=== PATIENT | male | born 1950 | race Caucasian/White ===

== ENCOUNTER 2020-03-28 18:45 | Inpatient (IN) | payer MEDICARE, BC ==
[~2020-03-28] VITALS: Ht 182.9 cm; Wt 116.4 kg
[2020-03-28 18:50] VITALS: BP 113/83
[2020-03-28] MEDS ORDERED: ACETAMINOPHEN 650 MG SUPP.RECT. PR PRN (19:45)
[2020-03-28] MEDS ORDERED: ONDANSETRON PF 4 MG/2 ML VIAL. IV PRN (19:45)
[2020-03-28] MEDS ORDERED: guaiFENesin ORAL 200 MG/10 ML LIQUID. PO PRN (19:45)
[2020-03-28] MEDS ORDERED: ALBUTEROL SULFATE 2.5 MG/3 ML NEBU. NEB PRN (19:45)
[2020-03-28] MEDS ORDERED: diphenhydrAMINE 50 MG/ML VIAL IVP PRN (19:45)
[2020-03-28] MEDS ORDERED: ACETAMINOPHEN 325 MG TABLET. PO PRN (19:45)
[2020-03-28] MEDS ORDERED: ZOLPIDEM 5 MG TABLET. PO PRN (19:45)
[2020-03-28 20:10] LABS: BASO # 0.1 x10^3/uL (0.0-0.2); BASO % 1 % (0-3); EOS # 0.1 x10^3/uL (0.0-0.7); EOS % 1 % (0-3); HEMATOCRIT 43.1 % (39.0-53.0); HEMOGLOBIN 14.4 g/dL (13.0-17.5); LYMPH # 1.7 x10^3/uL (1.0-4.8); LYMPH % 16 % (24-48); MEAN CORPUSCULAR HEMOGLOBIN 30 pg (25-35); MEAN CORPUSCULAR HGB CONC 33 g/dL (31-37); MEAN CORPUSCULAR VOLUME 90 fL (79-100); MONO # 0.7 x10^3/uL (0.0-1.1); MONO % 6 % (0-9); NEUT % 75 % (31-73); PLATELET COUNT 274 x10^3/uL (140-400); RED BLOOD COUNT 4.78 x10^6/uL (4.30-5.70); RED CELL DISTRIBUTION WIDTH 15.6 % (11.5-14.5); WHITE BLOOD COUNT 10.6 x10^3/uL (4.0-11.0)
[2020-03-28 20:22] LABS: CALCIUM 9.5 mg/dL (8.5-10.1); GFR 73.5
--- NOTE | 2020-03-28 20:39 | PDOC1 ---
History and Physical Date of Admission Date of Admission 03/28/2020 Identification/Chief Complaint Chief Complaint Food gets stuck Source Source: Chart review, Patient History of Present Illness History of Present Illness Patient is a 70-year-old gentleman with past medical history of diabetes dysphagia atrial fibrillation who was in his usual state of health until ye evening when apparently he came back from driving from [place] and as he was having dinner patient felt like food got stuck in his throat. The patient relates that he never drinks soda and that particular evening since he was tired and did not want to look for something else to drink he proceeded to drink a soda that he found in his fridge. Patient and denies weight loss he had a longstanding history of smoking bypass over 10 years quitting. The patient denies any recent weight loss no hematemesis no black tarry stools no pain. Patient takes metformin and Trulicity for his diabetes but does not remember his hemoglobin A1c. Patient was assessed in the emergency department at the [facility] in [place] due to the significant symptoms he was having with difficulty swallowing. He does not have airway compromise he does not have stridor denies any headache palpitations no shortness of breath no chest pain no nausea vomiting or diarrhea has been reported, we were called from [facility] for transfer for a GI evaluation and possible EGD in the a.m. I have discussed CODE STATUS with the patient and the present time he continues to be a full code, all of his concerns were addressed to the best of my abilities, plan of care explained in detail Past Medical History Cardiovascular: AFIB, CAD, CHF, HTN Pulmonary: Asthma CENTRAL NERVOUS SYSTEM: Other (Brain bleed) Heme/Onc: Cancer (Prostate cancer) Past Surgical History Past Surgical History: No pertinent history Family History Family History: Other (Esophageal cancer) Social History Smoke: No ALCOHOL: none Drugs: None Current Medications Current Medications Current Medications Medications (Trade) Dose Ordered Sig/Sariah Start Time Stop Time Status Last Admin Dose Admin Acetaminophen (Tylenol Supp) 650 mg PRN Q4HRS PRN 03/28/20 19:45 UNV Acetaminophen (Tylenol) 650 mg PRN Q4HRS PRN 03/28/20 19:45 UNV Albuterol Sulfate (Ventolin Neb Soln) 2.5 mg PRN Q4HRS PRN 9/8/20 19:45 UNV Diphenhydramine HCl (Benadryl) 25 mg PRN Q4HRS PRN 03/28/20 19:45 UNV Enoxaparin Sodium (Lovenox 40mg Syringe) 40 mg Q24H 03/28/20 19:45 UNV Guaifenesin (Robitussin) 200 mg PRN Q4HRS PRN 03/28/20 19:45 UNV Lorazepam (Ativan Inj) 1 mg PRN Q4HRS PRN 03/28/20 19:45 UNV Ondansetron HCl (Zofran) 4 mg PRN Q4HRS PRN 03/28/20 19:45 UNV Sodium Chloride 1,000 ml @ 100 mls/hr Q10H 03/28/20 19:41 UNV Zolpidem Tartrate (Ambien) 5 mg PRN QHS PRN 03/28/20 19:45 UNV ROS Review of System CONSTITUTIONAL: No fever or chills EYES: No recent changes SKIN: No rash or itching CARDIOVASCULAR: No chest pain, syncope, palpitations, or edema RESPIRATORY: No SOB or cough GASTROINTESTINAL: No nausea, vomiting or abdominal pain NEUROLOGICAL: No headaches or weakness ENDOCRINE: No cold or heat intolerance GENITOURINARY: No urgency or frequency of urination MUSCULOSKELETAL: No back pain or joint pain LYMPHATICS: No enlarged lymph nodes PSYCHIATRIC: No anxiety or depression Physical Exam Physical Exam GEN.: No apparent distress. Alert and oriented. HEENT: Head is normocephalic, atraumatic NECK: Supple. LUNGS: Clear to auscultation. HEART: RRR, S1, S2 present. Peripheral pulses intact ABDOMEN: Soft, nontender. Positive bowel sounds. EXTREMITIES: Without any cyanosis. NEUROLOGIC: Normal speech, normal tone PSYCHIATRIC: Normal affect, normal mood. SKIN: No ulcerations Vitals Vitals Vital Signs Date Time Temp Pulse Resp B/P (MAP) Pulse Ox O2 Delivery O2 Flow Rate FiO2 03/28/20 18:50 97.4 87 18 113/83 (93) 96 Room Air 97.4 Labs Labs Laboratory Tests Test 03/28/20 20:00 Sodium Level 142 mmol/L (136-145) Potassium Level 4.0 mmol/L (3.5-5.1) Chloride Level 103 mmol/L (98-107) Carbon Dioxide Level 25 mmol/L (21-32) Anion Gap 14 (6-14) Blood Urea Nitrogen 22 mg/dL (8-26) Creatinine 1.0 mg/dL (0.7-1.3) Estimated GFR (Cockcroft-Gault) 73.5 Glucose Level 117 mg/dL (70-99) Calcium Level 9.5 mg/dL (8.5-10.1) Laboratory Tests Test 03/28/20 20:00 Sodium Level 142 mmol/L (136-145) Potassium Level 4.0 mmol/L (3.5-5.1) Chloride Level 103 mmol/L (98-107) Carbon Dioxide Level 25 mmol/L (21-32) Anion Gap 14 (6-14) Blood Urea Nitrogen 22 mg/dL (8-26) Creatinine 1.0 mg/dL (0.7-1.3) Estimated GFR (Cockcroft-Gault) 73.5 Glucose Level 117 mg/dL (70-99) Calcium Level 9.5 mg/dL (8.5-10.1) VTE Prophylaxis Ordered VTE Prophylaxis Devices: No VTE Pharmacological Prophylaxi: Yes Assessment/Plan Assessment/Plan Food impaction in the esophagus History of atrial fibrillation History of diabetes mellitus type 2 Essential hypertension History of prostate cancer History of intracranial hemorrhage Plan Consult GI Keep n.p.o. Fluid for maintenance with normal saline Metoprolol as needed DVT prophylaxis with SCDs due to his history of brain bleed Further recommendations based on the clinical course Justifications for Admission Other Justification CHAYO MIGUEL MD Mar 28, 2020 20:39
[2020-03-28] MEDS ORDERED: METOPROLOL TARTRATE 5 MG/5 ML VIAL. IVP PRN (20:45)
[2020-03-28] MEDS ORDERED: PANTOPRAZOLE IV PUSH 40 MG VIAL. IVP ONE (21:30)
[2020-03-28] MEDS: IV NORMAL SALINE 1000ML BAG 1,000 ML IV SCH (21:37)
[2020-03-28 22:50] VITALS: BP 137/61
[2020-03-28] MEDS ORDERED: LISI-338 PO (23:25)
[2020-03-28] MEDS ORDERED: MONT10TA49 PO (23:25)
[2020-03-28] MEDS ORDERED: DICL100G54 TP (23:25)
[2020-03-28] MEDS ORDERED: CARV6.2511 PO (23:25)
[2020-03-28] MEDS ORDERED: DULA0.75 SQ (23:25)
[2020-03-28] MEDS ORDERED: SPIR25TA5 PO (23:25)
[2020-03-28] MEDS ORDERED: ESCITALOPRAM OX10 MG PO (23:25)
[2020-03-28] MEDS ORDERED: METF-658 PO (23:25)
[2020-03-28] MEDS ORDERED: FURO20TA3 PO (23:25)
--- NOTE | 2020-03-29 00:33 | NUR ---
Patient arrived from [place] at 1840. Patient is alert and orientated x4. Patient is able to make needs known. Patient belongings verified. Dr. Bernard here and new orders received.
[2020-03-29 02:30] VITALS: BP 136/64
[2020-03-29] MEDS: IV NORMAL SALINE 1000ML BAG 1,000 ML IV SCH (06:26)
[2020-03-29] MEDS ORDERED: IV RINGERS,LACTATED 1000ML 1,000 ML IV ONE (07:15)
[2020-03-29] MEDS ORDERED: LIDOCAINE 2% PF 5 ML VIAL. ONE (07:25)
[2020-03-29] MEDS ORDERED: PROPOFOL 10 MG/ML (20ML) VIAL. IV ONE (07:25)
--- NOTE | 2020-03-29 08:10 | PDOC2 ---
CONSULT Date of Consult Date of Consult DATE: 03/29/20 TIME: 08:08 Reason for Consult Reason for Consult: Dysphagia/meat impaction Past Medical History Cardiovascular: AFIB, CAD, CHF, HTN Pulmonary: Asthma CENTRAL NERVOUS SYSTEM: Other (Brain bleed) Heme/Onc: Cancer (Prostate cancer) Past Surgical History Past Surgical History: No pertinent history Family History Family History: Other (Esophageal cancer) Social History No ALCOHOL: none Drugs: None Current Medications Current Medications Current Medications Sodium Chloride 1,000 ml @ 100 mls/hr Q10H IV Last administered on 03/29/20at 06:26; Start 03/28/20 at 19:41 Ondansetron HCl (Zofran) 4 mg PRN Q4HRS PRN IV NAUSEA/VOMITING; Start 03/28/20 at 19:45 Zolpidem Tartrate (Ambien) 5 mg PRN QHS PRN PO INSOMNIA; Start 03/28/20 at 19:45 Acetaminophen (Tylenol) 650 mg PRN Q4HRS PRN PO TEMP OVER 100.4F OR MILD PAIN; Start 03/28/20 at 19:45 Acetaminophen (Tylenol Supp) 650 mg PRN Q4HRS PRN MD TEMP OVER 100.4F OR MILD PAIN; Start 03/28/20 at 19:45 Diphenhydramine HCl (Benadryl) 25 mg PRN Q4HRS PRN IVP ITCHING; Start 03/28/20 at 19:45 Albuterol Sulfate (Ventolin Neb Soln) 2.5 mg PRN Q4HRS PRN NEB SHORTNESS OF BREATH; Start 03/28/20 at 19:45 Guaifenesin (Robitussin) 200 mg PRN Q4HRS PRN PO COUGH; Start 03/28/20 at 19:45 Lorazepam (Ativan Inj) 1 mg PRN Q4HRS PRN IV ANXIETY / AGITATION; Start 03/28/20 at 19:45 Enoxaparin Sodium (Lovenox 40mg Syringe) 40 mg Q24H SQ ; Start 03/29/20 at 09:00 Pantoprazole Sodium (PROTONIX VIAL for IV PUSH) 40 mg 1X ONCE IVP Last administered on 03/28/20at 21:37; Start 03/28/20 at 21:30; Stop 03/28/20 at 21:31; Status DC Metoprolol Tartrate (Lopressor Vial) 5 mg PRN Q6HRS PRN IVP HYPERTENSION; Start 03/28/20 at 20:45 Ringer's Solution 1,000 ml @ 75 mls/hr 1X ONCE IV Last administered on 03/29/20at 07:16; Start 03/29/20 at 07:15; Stop 03/29/20 at 20:34 Propofol (Diprivan) 200 mg STK-MED ONCE IV ; Start 03/29/20 at 07:25; Stop 03/29/20 at 07:25; Status DC Lidocaine HCl (Lidocaine Pf 2% Vial) 5 ml STK-MED ONCE .ROUTE ; Start 03/29/20 at 07:25; Stop 03/29/20 at 07:25; Status DC Active Scripts Active Reported Trulicity (Dulaglutide) 0.75 Mg/0.5 Ml Pen.injctr 0.75 Mg SQ WEEKLY Metformin Hcl Er (Metformin Hcl) 500 Mg Tab.er.24h 500 Mg PO BIDWMEALS Furosemide 20 Mg Tablet 20 Mg PO DAILY Escitalopram Oxalate 10 Mg Tablet 1 Tab PO HS Carvedilol (Carvedilol) 6.25 Mg Tablet 6.25 Mg PO BIDWMEALS Lisinopril 5 Mg Tablet 1 Tab PO DAILY Spironolactone 25 Mg Tablet 12.5 Mg PO DAILY Montelukast Sodium Tablet (Montelukast Sodium) 10 Mg Tablet 10 Mg PO HS Voltaren (Diclofenac Sodium) 100 Gm Gel..gram. 1 Gm TP QID 30 Days apply to affected area(s) Allergies Allergies: Coded Allergies: bee venom protein (honey bee) (Verified Allergy, Severe, 03/29/20) cephalexin (Verified Allergy, Intermediate, 03/29/20) Vitals VITALS Vital Signs Date Time Temp Pulse Resp B/P (MAP) Pulse Ox O2 Delivery O2 Flow Rate FiO2 03/29/20 07:10 97.9 91 20 95 97.9 03/29/20 07:08 Room Air 03/29/20 02:30 136/64 (88) Labs Labs Laboratory Tests Test 03/28/20 20:00 03/28/20 20:56 03/28/20 23:00 White Blood Count 10.6 x10^3/uL (4.0-11.0) Red Blood Count 4.78 x10^6/uL (4.30-5.70) Hemoglobin 14.4 g/dL (13.0-17.5) Hematocrit 43.1 % (39.0-53.0) Mean Corpuscular Volume 90 fL (79-100) Mean Corpuscular Hemoglobin 30 pg (25-35) Mean Corpuscular Hemoglobin Concent 33 g/dL (31-37) Red Cell Distribution Width 15.6 % (11.5-14.5) Platelet Count 274 x10^3/uL (140-400) Neutrophils (%) (Auto) 75 % (31-73) Lymphocytes (%) (Auto) 16 % (24-48) Monocytes (%) (Auto) 6 % (0-9) Eosinophils (%) (Auto) 1 % (0-3) Basophils (%) (Auto) 1 % (0-3) Neutrophils # (Auto) 8.0 x10^3/uL (1.8-7.7) Lymphocytes # (Auto) 1.7 x10^3/uL (1.0-4.8) Monocytes # (Auto) 0.7 x10^3/uL (0.0-1.1) Eosinophils # (Auto) 0.1 x10^3/uL (0.0-0.7) Basophils # (Auto) 0.1 x10^3/uL (0.0-0.2) Sodium Level 142 mmol/L (136-145) Potassium Level 4.0 mmol/L (3.5-5.1) Chloride Level 103 mmol/L (98-107) Carbon Dioxide Level 25 mmol/L (21-32) Anion Gap 14 (6-14) Blood Urea Nitrogen 22 mg/dL (8-26) Creatinine 1.0 mg/dL (0.7-1.3) Estimated GFR (Cockcroft-Gault) 73.5 Glucose Level 117 mg/dL (70-99) Calcium Level 9.5 mg/dL (8.5-10.1) Glucose (Fingerstick) 122 mg/dL (70-99) SARS-CoV-2 Antigen (Rapid) Negative (NEGATIVE) Laboratory Tests Test 03/28/20 20:00 03/28/20 20:56 03/28/20 23:00 White Blood Count 10.6 x10^3/uL (4.0-11.0) Red Blood Count 4.78 x10^6/uL (4.30-5.70) Hemoglobin 14.4 g/dL (13.0-17.5) Hematocrit 43.1 % (39.0-53.0) Mean Corpuscular Volume 90 fL (79-100) Mean Corpuscular Hemoglobin 30 pg (25-35) Mean Corpuscular Hemoglobin Concent 33 g/dL (31-37) Red Cell Distribution Width 15.6 % (11.5-14.5) Platelet Count 274 x10^3/uL (140-400) Neutrophils (%) (Auto) 75 % (31-73) Lymphocytes (%) (Auto) 16 % (24-48) Monocytes (%) (Auto) 6 % (0-9) Eosinophils (%) (Auto) 1 % (0-3) Basophils (%) (Auto) 1 % (0-3) Neutrophils # (Auto) 8.0 x10^3/uL (1.8-7.7) Lymphocytes # (Auto) 1.7 x10^3/uL (1.0-4.8) Monocytes # (Auto) 0.7 x10^3/uL (0.0-1.1) Eosinophils # (Auto) 0.1 x10^3/uL (0.0-0.7) Basophils # (Auto) 0.1 x10^3/uL (0.0-0.2) Sodium Level 142 mmol/L (136-145) Potassium Level 4.0 mmol/L (3.5-5.1) Chloride Level 103 mmol/L (98-107) Carbon Dioxide Level 25 mmol/L (21-32) Anion Gap 14 (6-14) Blood Urea Nitrogen 22 mg/dL (8-26) Creatinine 1.0 mg/dL (0.7-1.3) Estimated GFR (Cockcroft-Gault) 73.5 Glucose Level 117 mg/dL (70-99) Calcium Level 9.5 mg/dL (8.5-10.1) Glucose (Fingerstick) 122 mg/dL (70-99) SARS-CoV-2 Antigen (Rapid) Negative (NEGATIVE) Assessment/Plan Assessment/Plan Dysphagia- with meat impactoin. Etiology to be determined. Differential includes: Schatzki ring, mallignancy, achalasia, eosinophilic esophagitis, and/or Krishnan's. Plan egd with foreign body removal and possible dilation Full note dictated SANTI FERNANDO MD Mar 29, 2020 08:10
--- NOTE | 2020-03-29 08:11 | PDOC4 ---
Operative Note Operative Note EGD with foreign body removal Meds Propofol per anesthesia Pre-op dx Dysphagia/meat impaction Post-op dx esophagitis with stricture s/p bolus removal Plan O/P Protonix 40 mg daily for 2 months EGD with dilation in 2-3 weeks after medical therapy above. SANTI FERNANDO MD Mar 29, 2020 08:11
[2020-03-29] MEDS ORDERED: ENOXAPARIN 40 MG/0.4 ML SYRINGE. SQ SCH (09:00)
--- NOTE | 2020-03-29 09:10 | CONS ---
DATE OF CONSULTATION: 03/29/2020 GASTROENTEROLOGY CONSULTATION REASON FOR CONSULTATION: Food impaction. HISTORY OF PRESENT ILLNESS: A 70-year-old male with past medical history significant for AFib, coronary artery disease with history of stents, CHF, hypertension, brain bleed, prostate cancer as well as heart stents and is admitted to [facility] via [facility] with a sensation of food bolus being stuck an hour after he began to feel sensation to drink liquids. This was unable to pass. Subsequently, he has come to the Emergency Room late yesterday, being transferred here for further evaluation and care. States he has had heartburn in the past. He is a former smoker and drinker, but has been abstinent for over 8 years of each. His weight have been stable. With the continued issues, requests additional evaluation. PAST MEDICAL HISTORY: AFib, coronary artery disease, congestive heart failure, hypertension, asthma, prostate cancer, history of heart stents. There is a family history of esophageal cancer. MEDICATIONS: At the present time include Trulicity, metformin, anticoagulation with Plavix. SOCIAL HISTORY: Nondrinker, nonsmoker. He is retired. FAMILY HISTORY: Significant for esophageal cancer. REVIEW OF SYSTEMS: Per records. PHYSICAL EXAMINATION: GENERAL: Reveals well-nourished, well-developed male who is alert, cooperative, in mild distress. VITAL SIGNS: Temperature 97.9, pulse 91, respirations 20, sat on room air is 95%. LUNGS: Clear. CARDIOVASCULAR: Reveals an S1, S2 without S3, S4 or appreciable murmur. ABDOMEN: With a soft abdomen. Normal bowel sounds, without appreciable hepatosplenomegaly without apparent crepitus. EXTREMITIES: No cyanosis, clubbing or edema. There are multiple ecchymoses all over the skin. LABORATORY STUDIES: Sodium 142, potassium 4.0, chloride 103, BUN 22, creatinine 1.0, glucose is 117, calcium is 9.5. Hemoglobin 14.4, hematocrit 42.1, white count 10.6, and platelet counts 274,000. IMPRESSION: Dysphagia with history of reflux. Differential includes achalasia, malignancy, Krishnan's with stricture, eosinophilic esophagitis, Schatzki's ring among others. We therefore recommend upper endoscopy with possible biopsy and foreign body removal. Risks and benefits of procedure including risk of hemorrhage and perforation with anticoagulation as well as food bolus has been present for a length of time and increased risk of perforation have been discussed. Attempts will be made to dislodge the food bolus today with potential dilatation, second procedure may be needed down the road. SANTI FERNANDO MD DR: MARVA/melania JOB#: [id number] / [id number]
[2020-03-29] MEDS ORDERED: PANT40TA77 PO (09:20)
[2020-03-29] MEDS ORDERED: CARVEDILOL 6.25 MG TABLET. PO SCH (09:30)
[2020-03-29] MEDS ORDERED: metFORMIN XR 500 MG TAB.ER.24H PO SCH (09:30)
--- NOTE | 2020-03-29 09:36 | PDOC3 ---
Discharge Summary Visit Information Date of Admission: Mar 28, 2020 Date of Discharge: Mar 29, 2020 Admitting Diagnosis Comment: Food impaction in the esophagus History of atrial fibrillation History of diabetes mellitus type 2 Essential hypertension History of prostate cancer History of intracranial hemorrhage Final Diagnosis Food impaction in the esophagus History of atrial fibrillation History of diabetes mellitus type 2 Essential hypertension History of prostate cancer History of intracranial hemorrhage Brief Hospital Course Allergies Allergies Coded Allergies Type Severity Reaction Last Updated Verified bee venom protein (honey bee) Allergy Severe 03/29/20 Yes cephalexin Allergy Intermediate 03/29/20 Yes Vital Signs Vital Signs Date Time Temp Pulse Resp B/P (MAP) Pulse Ox O2 Delivery O2 Flow Rate FiO2 03/29/20 08:39 81 18 141/71 95 Room Air 03/29/20 08:04 97.1 2 97.1 Lab Results Laboratory Tests Test 03/28/20 20:00 03/28/20 20:56 03/28/20 23:00 03/29/20 09:26 White Blood Count 10.6 x10^3/uL (4.0-11.0) Red Blood Count 4.78 x10^6/uL (4.30-5.70) Hemoglobin 14.4 g/dL (13.0-17.5) Hematocrit 43.1 % (39.0-53.0) Mean Corpuscular Volume 90 fL (79-100) Mean Corpuscular Hemoglobin 30 pg (25-35) Mean Corpuscular Hemoglobin Concent 33 g/dL (31-37) Red Cell Distribution Width 15.6 % (11.5-14.5) Platelet Count 274 x10^3/uL (140-400) Neutrophils (%) (Auto) 75 % (31-73) Lymphocytes (%) (Auto) 16 % (24-48) Monocytes (%) (Auto) 6 % (0-9) Eosinophils (%) (Auto) 1 % (0-3) Basophils (%) (Auto) 1 % (0-3) Neutrophils # (Auto) 8.0 x10^3/uL (1.8-7.7) Lymphocytes # (Auto) 1.7 x10^3/uL (1.0-4.8) Monocytes # (Auto) 0.7 x10^3/uL (0.0-1.1) Eosinophils # (Auto) 0.1 x10^3/uL (0.0-0.7) Basophils # (Auto) 0.1 x10^3/uL (0.0-0.2) Sodium Level 142 mmol/L (136-145) Potassium Level 4.0 mmol/L (3.5-5.1) Chloride Level 103 mmol/L (98-107) Carbon Dioxide Level 25 mmol/L (21-32) Anion Gap 14 (6-14) Blood Urea Nitrogen 22 mg/dL (8-26) Creatinine 1.0 mg/dL (0.7-1.3) Estimated GFR (Cockcroft-Gault) 73.5 Glucose Level 117 mg/dL (70-99) Calcium Level 9.5 mg/dL (8.5-10.1) Glucose (Fingerstick) 122 mg/dL (70-99) 158 mg/dL (70-99) SARS-CoV-2 Antigen (Rapid) Negative (NEGATIVE) Laboratory Tests Test 03/28/20 20:00 03/28/20 20:56 03/28/20 23:00 03/29/20 09:26 White Blood Count 10.6 x10^3/uL (4.0-11.0) Red Blood Count 4.78 x10^6/uL (4.30-5.70) Hemoglobin 14.4 g/dL (13.0-17.5) Hematocrit 43.1 % (39.0-53.0) Mean Corpuscular Volume 90 fL (79-100) Mean Corpuscular Hemoglobin 30 pg (25-35) Mean Corpuscular Hemoglobin Concent 33 g/dL (31-37) Red Cell Distribution Width 15.6 % (11.5-14.5) Platelet Count 274 x10^3/uL (140-400) Neutrophils (%) (Auto) 75 % (31-73) Lymphocytes (%) (Auto) 16 % (24-48) Monocytes (%) (Auto) 6 % (0-9) Eosinophils (%) (Auto) 1 % (0-3) Basophils (%) (Auto) 1 % (0-3) Neutrophils # (Auto) 8.0 x10^3/uL (1.8-7.7) Lymphocytes # (Auto) 1.7 x10^3/uL (1.0-4.8) Monocytes # (Auto) 0.7 x10^3/uL (0.0-1.1) Eosinophils # (Auto) 0.1 x10^3/uL (0.0-0.7) Basophils # (Auto) 0.1 x10^3/uL (0.0-0.2) Sodium Level 142 mmol/L (136-145) Potassium Level 4.0 mmol/L (3.5-5.1) Chloride Level 103 mmol/L (98-107) Carbon Dioxide Level 25 mmol/L (21-32) Anion Gap 14 (6-14) Blood Urea Nitrogen 22 mg/dL (8-26) Creatinine 1.0 mg/dL (0.7-1.3) Estimated GFR (Cockcroft-Gault) 73.5 Glucose Level 117 mg/dL (70-99) Calcium Level 9.5 mg/dL (8.5-10.1) Glucose (Fingerstick) 122 mg/dL (70-99) 158 mg/dL (70-99) SARS-CoV-2 Antigen (Rapid) Negative (NEGATIVE) Brief Hospital Course Mr. Julian is a 70 old male who presented with the above-mentioned food impaction of the esophagus. Patient was seen in consultation by GI and took him to the endoscopy suite for an EGD. Results are as follows Operative Note EGD with foreign body removal Meds Propofol per anesthesia Pre-op dx Dysphagia/meat impaction Post-op dx esophagitis with stricture s/p bolus removal Plan O/P Protonix 40 mg daily for 2 months EGD with dilation in 2-3 weeks after medical therapy above. SANTI FERNANDO MD Mar 29, 2020 08:11 He was deemed appropriate for discharge once he has had lunch. All of his concerns were addressed to the best of my abilities he will be following up with Dr. Egan in 2 to 3 weeks Physical exam Lungs clear to auscultation bilaterally with good inspiratory effort Cardiovascular S1-S2 regular rhythm no murmurs gallops or rubs Discharge Information Condition at Discharge: Improved Follow Up: Weeks Disposition/Orders: D/C to Home Scheduled Carvedilol (Carvedilol ) 6.25 Mg Tablet, 6.25 MG PO BIDWMEALS for CARDIAC, (Reported) Entered as Reported by: JONATHAN CARRANZA on 03/28/20 [id number] Last Taken: Unknown Dose on 03/25/20 Last Action: Continued on 03/29/20921 by CHAYO MIGUEL MD Diclofenac Sodium (Voltaren) 100 Gm Gel..gram., 1 GM TP QID for pain for 30 Days, #1 Ref 0 (Reported) apply to affected area(s) Entered as Reported by: JONATHAN CARRANZA on 03/28/202324 Last Taken: Unknown Dose on Unknown Date & Time Last Action: Continued on 03/29/20921 by CHAYO MIGUEL MD Dulaglutide (Trulicity) 0.75 Mg/0.5 Ml Pen.injctr, 0.75 MG SQ WEEKLY for Diabetes, (Reported) Entered as Reported by: JONATHAN CARRANZA on 03/28/202324 Last Taken: Unknown Dose on 03/23/20 Last Action: Converted on 03/29/20921 by CHAYO MIGUEL MD Escitalopram Oxalate (Escitalopram Oxalate) 10 Mg Tablet, 1 TAB PO HS for depression, #30 Ref 3 (Reported) Entered as Reported by: JONATHAN CARRANZA on 03/28/202324 Last Taken: Unknown Dose on 03/25/20 Last Action: Converted on 03/29/20921 by CHAYO MIGUEL MD Furosemide (Furosemide) 20 Mg Tablet, 20 MG PO DAILY for CHF, (Reported) Entered as Reported by: JONATHAN CARRANZA on 03/28/202324 Last Taken: UNKNOWN on Unknown Date & Time Last Action: Continued on 03/29/20921 by CHAYO MIGUEL MD Lisinopril (Lisinopril) 5 Mg Tablet, 1 TAB PO DAILY for HTN, #30 Ref 5 (Reported) Entered as Reported by: JONATHAN CARRANZA on 03/28/202324 Last Taken: Unknown Dose on 03/25/20 Last Action: Continued on 03/29/20921 by CHAYO MIGUEL MD Metformin Hcl (Metformin Hcl Er) 500 Mg Tab.er.24h, 500 MG PO BIDWMEALS for Diabetes, (Reported) Entered as Reported by: JONATHAN CARRANZA on 03/28/202324 Last Taken: UNKNOWN on Unknown Date & Time Last Action: Continued on 03/29/20921 by CHAYO MIGUEL MD Montelukast Sodium (Montelukast Sodium Tablet ) 10 Mg Tablet, 10 MG PO HS for FOR ASTHMA, Ref 0 (Reported) Entered as Reported by: JONATHAN CARRANZA on 03/28/202324 Last Taken: Unknown Dose on 03/25/20 Last Action: Continued on 03/29/20921 by CHAYO MIGUEL MD Pantoprazole Sodium (Protonix ) 40 Mg Tablet.dr, 40 MG PO DAILYAC for GERD for 30 Days, #30 Prescribed by: CHAYO MIGUEL MD on 03/29/20919 Last Action: Continued on 03/29/20921 by CHAYO MIGUEL MD Spironolactone (Spironolactone) 25 Mg Tablet, 12.5 MG PO DAILY for HTN, (Reported) Entered as Reported by: JONATHAN CARRANZA on 03/28/202324 Last Taken: Unknown Dose on 03/25/20 Last Action: Continued on 03/29/20921 by CHAYO MIGUEL MD Justicifation of Admission Dx: Justifications for Admission: Justification of Admission Dx: Yes Comments: Esophageal foreign body CHAYO MIGUEL MD Mar 29, 2020 09:35
[2020-03-29] MEDS ORDERED: LISINOPRIL 5 MG TABLET. PO SCH (10:00)
[2020-03-29] MEDS ORDERED: CITALOPRAM 20 MG TABLET. PO SCH (10:00)
[2020-03-29] MEDS ORDERED: FUROSEMIDE 20 MG TABLET PO SCH (10:00)
[2020-03-29] MEDS ORDERED: SPIRONOLACTONE 25 MG TABLET PO SCH (10:00)
--- NOTE | 2020-03-29 10:40 | NUR ---
SS following for discharge planning. SS reviewed pt chart and discussed with pt RN. Pt is from home with spouse and is currently on room air. Pt had EGD today. Possible discharge to home today with self care. SS will continue to follow for discharge planning.
[2020-03-29] MEDS: DICLOFENAC SODIUM 1% TOPICAL GEL 100GM TUBE. TP SCH ×2 (10:47→13:00)
[2020-03-29 11:12] VITALS: BP 139/59
[2020-03-29] MEDS ORDERED: PANTOPRAZOLE 40 MG TABLET.DR. PO SCH (11:30)
--- NOTE | 2020-03-29 14:30 | NUR ---
Discharge instructions given to patient. Pt informed that Dr. Almanzar's office will be contacting him for a follow up appointment in 2-3 weeks. Education given over esophageus stricture and protonix. Patient verbalizes understanding.
--- NOTE | 2020-03-29 15:45 | EKG ---
[facility] [address] [place] [address] Test Date: 2020-03-29 Test Time: 13:31:42 Pat Name: KASI LITTLE Department: Room: 205 1 Gender: M [employer] Section: [place] : 1950 Requested By: CHAYO MIGUEL Order Number: [id number] Reading MD: Measurements Intervals [place] Rate: 93 P: ME: QRS: 5 QRSD: 114 T: 205 QT: 384 QTc: 480 Interpretive Statements IRREGULAR RHYTHM, NO P-WAVE FOUND T ABNORMALITY IN LATERAL LEADS INFEROLATERAL LEADS PROLONGED QT ABNORMAL ECG RI6.02 No previous ECG available for comparison
[2020-03-29] MEDS ORDERED: MONTELUKAST SODIUM 10 MG TABLET. PO SCH (21:00)
[2020-04-08] MEDS ORDERED: NON FORMULARY ITEM (Dulaglutide (Trulicity) 0.75 MG) SQ SCH (09:00)
== END 2020-03-29 15:00 | disposition home or self-care (01) | DRG 395 ==
LOC: 2 NORTH 18:45
PROVIDERS: ADMIT Internal Medicine; ATTEND Internal Medicine
PROC: 0DC58ZZ Extirpation of Matter from Esophagus, Via Natural or Artificial Opening Endoscopic (ICD-10-PCS; principal; 2020-03-29 07:30)
DX: T18.128A Food in esophagus causing other injury, initial encounter (principal); E11.9 Type 2 diabetes mellitus without complications; K22.2 Esophageal obstruction; K21.0 Gastro-esophageal reflux disease with esophagitis; I11.0 Hypertensive heart disease with heart failure; I25.10 Atherosclerotic heart disease of native coronary artery without angina pectoris; I48.91 Unspecified atrial fibrillation; I50.9 Heart failure, unspecified; J45.909 Unspecified asthma, uncomplicated; Z80.0 Family history of malignant neoplasm of digestive organs; Z20.828 Contact with and (suspected) exposure to other viral communicable diseases; Z85.46 Personal history of malignant neoplasm of prostate; Z86.73 Personal history of transient ischemic attack (TIA), and cerebral infarction without residual deficits; Z87.891 Personal history of nicotine dependence; Z95.5 Presence of coronary angioplasty implant and graft; Z79.899 Other long term (current) drug therapy; X58.XXXA Exposure to other specified factors, initial encounter; Y93.89 Activity, other specified; Y92.89 Other specified places as the place of occurrence of the external cause; Y99.8 Other external cause status; Z88.8 Allergy status to other drugs, medicaments and biological substances; Z91.030 Bee allergy status
CPT/HCPCS: 36415; 43247; 80048; 82962; 85025; 87426; 93005; 94760; C9113; J2704; J7030; J7120; G0378; U0003-CS

== ENCOUNTER → 2020-04-17 | Outpatient (CLI) | payer MEDICARE, BC ==
[2020-03-29 11:12] VITALS: BP 139/59
[~2020-04-17] MED LIST: CARV6.2511 PO; DICL100G54 TP; DULA0.75 SQ; ESCITALOPRAM OX10 MG PO; FURO20TA3 PO; LISI-338 PO; METF-658 PO; MONT10TA49 PO; PANT40TA77 PO; SPIR25TA5 PO
== END | disposition home or self-care (01) ==
LOC: LAB 07:19
PROVIDERS: ATTEND Internal Medicine Gastroenterology
DX: Z01.812 Encounter for preprocedural laboratory examination (principal); Z20.828 Contact with and (suspected) exposure to other viral communicable diseases; R13.10 Dysphagia, unspecified
CPT/HCPCS: U0003-CS

== ENCOUNTER → 2020-04-19 | Day surgery (SDC) | payer MEDICARE, BC ==
[~2020-04-19] MED LIST changes: +IV RINGERS,LACTATED 1000ML 1,000 ML IV SCH; +PROPOFOL 10 MG/ML (20ML) VIAL. IV ONE
[2020-04-19 09:57] VITALS: BP 129/58
== END | disposition home or self-care (01) ==
LOC: ENDOS 07:44
PROVIDERS: ATTEND Internal Medicine Gastroenterology
DX: R13.10 Dysphagia, unspecified (principal); K22.2 Esophageal obstruction; I11.0 Hypertensive heart disease with heart failure; I50.9 Heart failure, unspecified; K21.9 Gastro-esophageal reflux disease without esophagitis; Z87.891 Personal history of nicotine dependence; Z88.8 Allergy status to other drugs, medicaments and biological substances; Z79.899 Other long term (current) drug therapy
CPT/HCPCS: 36415; 43450; J2704